=== PATIENT | female | born 1955 | race Caucasian/White ===

== ENCOUNTER → 2019-07-12 | Outpatient (CLI) | payer OTHER ==
--- NOTE | 2019-07-12 10:59 | MM ---
Reason for exam: screening (asymptomatic). Last mammogram was performed 2 years and 11 months ago. History: Patient is postmenopausal. Benign US right core biopsy of the right breast, December 12, 2005. Benign ultrasound-guided core biopsy of the left breast, February 22, 2005. Benign ultrasound-guided core biopsy of the left breast, February 22, 2005. Core biopsy of the left breast. Took hormonal contraceptives for 6 months beginning at age 21. Took estrogen for 6 months beginning at age 54. Physical Findings: A clinical breast exam by your physician is recommended on an annual basis and results should be correlated with mammographic findings. MG Screening Mammo w CAD Bilateral CC and MLO view(s) were taken. Prior study comparison: August 09, 2016, bilateral MG 3d screening mammo w/cad. August 07, 2015, bilateral MG screening mammo w CAD. The breast tissue is heterogeneously dense. This may lower the sensitivity of mammography. Finding: There are typically benign vascular, round calcifications in both breasts. Previous mammotome biopsy in the right breast. There is a chronic nodularity in the left anterior outer aspect. There is no discrete abnormality. ASSESSMENT: Benign, BI-RAD 2 RECOMMENDATION: Routine screening mammogram of both breasts in 1 year.
== END | disposition home or self-care (01) ==
LOC: RADMAMWWP 07:34
PROVIDERS: ATTEND Family Medicine
DX: Z12.31 Encounter for screening mammogram for malignant neoplasm of breast (principal)
CPT/HCPCS: 77067

== ENCOUNTER → 2020-07-14 | Outpatient (CLI) | payer OTHER ==
--- NOTE | 2020-07-18 11:16 | MM ---
Reason for exam: screening (asymptomatic). Last mammogram was performed 1 year ago. History: Patient is postmenopausal. Benign US right core biopsy of the right breast, December 12, 2005. Benign ultrasound-guided core biopsy of the left breast, February 22, 2005. Benign ultrasound-guided core biopsy of the left breast, February 22, 2005. Core biopsy of the left breast. Took hormonal contraceptives for 6 months beginning at age 21. Took estrogen for 6 months beginning at age 54. Physical Findings: A clinical breast exam by your physician is recommended on an annual basis and results should be correlated with mammographic findings. MG Screening Mammo w CAD Bilateral CC and MLO view(s) were taken. Prior study comparison: July 12, 2019, bilateral MG screening mammo w CAD. August 09, 2016, bilateral MG 3d screening mammo w/cad. The breast tissue is heterogeneously dense. This may lower the sensitivity of mammography. Previous mammotome biopsy in the right breast. There is chronic nodularity in the left breast laterally and posteriorly. No significant changes when compared with prior studies. ASSESSMENT: Benign, BI-RAD 2 RECOMMENDATION: Routine screening mammogram of both breasts in 1 year.
== END | disposition home or self-care (01) ==
LOC: RADMAMWWP 15:48
PROVIDERS: ATTEND Family Medicine
DX: Z12.31 Encounter for screening mammogram for malignant neoplasm of breast (principal)
CPT/HCPCS: 77067

== ENCOUNTER → 2022-09-13 | Outpatient (CLI) | payer MEDICARE ==
--- NOTE | 2022-09-13 08:39 | MM ---
Reason for Exam: Screening (asymptomatic). Last mammogram was performed 2 year(s) and 2 month(s) ago. Patient History: Menarche at age 15. First Full-Term at age 24. Hysterectomy at age 31. Postmenopausal. Estrogen for 6 months starting at age 54. Hormonal Contraceptives for 6 months from age 21 until age 21. Core Biopsy on the Left side. 12/12/2005, Benign Core Biopsy on the right side. 02/22/2005, Benign Ultrasound-Guided Core Biopsy on the left side. 02/22/2005, Benign Ultrasound-Guided Core Biopsy on the left side. Risk Values: Anabel 5 year model risk: 2.1%. NCI Lifetime model risk: 7.3%. Prior Study Comparison: 08/09/2016 Bilateral Screening Mammogram, [facility]. 07/12/2019 Bilateral Screening Mammogram, [facility]. 07/14/2020 Bilateral Screening Mammogram, [facility]. Tissue Density: The breast tissue is heterogeneously dense. This may lower the sensitivity of mammography. Findings: Analyzed By CAD. There is no suspicious group of microcalcifications or new suspicious mass in either breast. Overall Assessment: Benign, BI-RAD 2 Management: Screening Mammogram of both breasts in 1 year. A clinical breast exam by your physician is recommended on an annual basis and results should be correlated with mammographic findings. Electronically signed and approved by: Riki Auguste M.D. Radiologis
--- NOTE | 2022-09-13 09:29 | BD ---
EXAMINATION TYPE: Axial Bone Density DATE OF EXAM: 09/13/2022 COMPARISON: NONE CLINICAL HISTORY: 67 years year old Female. ICD-10 CODE: M89.9 Disorder of bone Height: 64.5 IN Weight: 209 LBS FRAX RISK QUESTIONS: Secondary Osteoporosis: 3. Menopause before 45: PARTIAL HYST AGE 31 RISK FACTORS HISTORY OF: Family History of Osteoporosis: YES MOTHER Active: YES Postmenopausal woman: PARTIAL HYST AGE 31 Take estrogen and/or progesterone medications: NOT NOW How lon YEARS MEDICATIONS: Additional Medications: CALCIUM, VIT D, ARTHRITIS MEDS, BLOOD PRESSURE MEDS, CHOLESTEROL MEDS, URINAR Y FREQUENCY MEDS, ALLERGY MEDS EXAM MEASUREMENTS: Bone mineral densitometry was performed using the Hyphen 8 System. Bone mineral density as measured about the Lumbar spine is: ----- L1-L4(G/cm2): 1.413 T Score Values are as follows: ----- L1: 1.6 ----- L2: 1.8 ----- L3: 2.3 ----- L4: 1.9 ----- L1-L4: 1.9 Bone mineral density BASELINE Bone mineral density about the R hip (g/cm2): 1.062 Bone mineral density about the L hip (g/cm2): 1.059 T Score values are as follows: -----R Neck: 0.2 -----L Neck: 0.1 -----R Total: 0.9 -----L Total: 0.8 Bone mineral density BASELINE FRAX%s: The graph provided illustrates a 2.7 chance for a major osteoporotic fx and a 0.1 chance for the hips probability for fx in 10 years time. IMPRESSION: Normal (Values between +1 and -1 indicate normal bone mass). Consider repeating this study in 5 year s or sooner if there is some new clinical indication. NOTE: T-SCORE=SD OF THE YOUNG ADULT MEAN.
== END | disposition home or self-care (01) ==
LOC: RADMAMWWP 06:42
PROVIDERS: ATTEND Family Medicine
DX: Z12.31 Encounter for screening mammogram for malignant neoplasm of breast (principal); M89.9 Disorder of bone, unspecified; Z78.0 Asymptomatic menopausal state
CPT/HCPCS: 77063; 77067; 77080

== ENCOUNTER 2022-10-15 08:32 | Day surgery (SDC) | payer MEDICARE ==
[2022-10-10 15:15] VITALS: BMI 34.9
[~2022-10-15 08:32] MED LIST: LACTATED RINGERS 1,000 ML IV SCH; LIDOCAINE 1% (10MG/ML) FOR IV START INTRADERMA PRN; ONDANSETRON 4 MG/2 ML VIAL IVP PRN
[2022-10-15 09:45] VITALS: TEMP 98.2
[2022-10-15] MEDS ORDERED: PROPOFOL 10 MG/ML 20 ML VIAL IV ONE (10:14)
--- NOTE | 2022-10-15 10:37 | P.PCN ---
Date of Procedure: 10/15/22 Procedure(s) Performed: BRIEF HISTORY: Patient is a 67-year-old pleasant white female scheduled for an elective colonoscopy as a part of evaluation of prior history of colon polyps. Last colonoscopy was 5 years ago. PROCEDURE PERFORMED: Colonoscopy with biopsy. PREOPERATIVE DIAGNOSIS: History of colon polyps. IV sedation per Anesthesia. PROCEDURE: After informed consent was obtained, the patient, was brought into the endoscopy unit. IV sedation was administered by Anesthesia under continuous monitoring. Digital rectal examination was normal. Initially the Olympus CF-160 flexible video colonoscope was then inserted in the rectum, gradually advanced into the cecum without any difficulty. Careful examination was performed as the scope was gradually being withdrawn. Ileocecal valve and the appendiceal orifice were visualized and appeared normal. Prep was excellent. Mucosa of the cecum, ascending colon, transverse colon, descending colon, appeared normal. The sigmoid colon there was a 5 mm polyp that was removed by cold biopsy. Scattered sigmoid diverticulosis seen. Rest of the sigmoid colon, and rectum appeared normal. Retroflexion was performed in the rectum and no lesions were seen. The patient tolerated the procedure well. IMPRESSION: 5 mm sigmoid: Polyp status post cold biopsy Scattered sigmoid diverticulosis RECOMMENDATIONS: Findings of this examination were discussed with the patient as well as a family.. She was advised to follow with the biopsy results. If the biopsy reveals adenoma she can have a repeat colonoscopy in 5 years.
[2022-10-15 10:56] VITALS: BP 141/69; PULSE 63; RESP 16
== END 2022-10-15 11:29 | disposition home or self-care (01) ==
LOC: ORWHC2ENDO 08:32
PROVIDERS: ATTEND Internal Medicine Gastroenterology
DX: Z12.11 Encounter for screening for malignant neoplasm of colon (principal); K63.5 Polyp of colon; K57.30 Diverticulosis of large intestine without perforation or abscess without bleeding; Z91.041 Radiographic dye allergy status; Z91.048 Other nonmedicinal substance allergy status; I10 Essential (primary) hypertension; E78.5 Hyperlipidemia, unspecified; Z90.79 Acquired absence of other genital organ(s); Z79.01 Long term (current) use of anticoagulants; Z79.899 Other long term (current) drug therapy; Z79.52 Long term (current) use of systemic steroids; Z79.1 Long term (current) use of non-steroidal anti-inflammatories (NSAID); Z79.811 Long term (current) use of aromatase inhibitors
CPT/HCPCS: 45380; J2704; 88305

== ENCOUNTER → 2023-11-03 | Outpatient (CLI) | payer MEDICARE ==
--- NOTE | 2023-11-03 17:37 | MM ---
Reason for Exam: Screening (asymptomatic). Last mammogram was performed 1 year(s) and 2 month(s) ago. Patient History: Menarche at age 15. First Full-Term at age 24. Hysterectomy at age 31. Postmenopausal. Estrogen for 6 months starting at age 54. Hormonal Contraceptives for 6 months from age 21 until age 21. Core Biopsy on the Left side. 12/12/2005, Benign Core Biopsy on the right side. 02/22/2005, Benign Ultrasound-Guided Core Biopsy on the left side. 02/22/2005, Benign Ultrasound-Guided Core Biopsy on the left side. Risk Values: Anabel 5 year model risk: 2.1%. NCI Lifetime model risk: 7.1%. Prior Study Comparison: 07/12/2019 Bilateral Screening Mammogram, [facility]. 07/14/2020 Bilateral Screening Mammogram, [facility]. 09/13/2022 Bilateral MG 3D screening mammo w/cad, [facility]. Tissue Density: The breast tissue is heterogeneously dense. This may lower the sensitivity of mammography. Findings: Analyzed By CAD. Benign vascular calcifications on the right. Microclip right breast from prior biopsy. There is no suspicious group of microcalcifications or new suspicious mass in either breast. Overall Assessment: Benign, BI-RAD 2 Management: Screening Mammogram of both breasts in 1 year. . Patient should continue monthly self-breast exams. A clinical breast exam by your physician is recommended on an annual basis. This exam should not preclude additional follow-up of suspicious palpable abnormalities. Note on Anabel scores and lifetime risk: 1. A Anabel score greater than 3% is considered moderate risk. If this is the case, consider specialist referral to assess eligibility for a risk reducing agent. 2. If overall lifetime risk for the development of breast cancer is 20% or higher, the patient may qualify for future screening with alternating mammogram and breast MRI. Electronically signed and approved by: Juanito Rubi M.D. Radiologist
== END | disposition home or self-care (01) ==
LOC: RADMAMWWP 09:25
PROVIDERS: ATTEND Family Medicine
DX: Z12.31 Encounter for screening mammogram for malignant neoplasm of breast (principal); Z78.0 Asymptomatic menopausal state
CPT/HCPCS: 77063; 77067

== ENCOUNTER 2024-02-01 18:32 | Emergency (ER) | payer MEDICARE ==
--- NOTE | 2024-02-01 19:05 | ED ---
Fall HPI - General Chief Complaint: Fall Stated Complaint: Fall, head injury Time Seen by Provider: 02/01/24 18:48 Source: patient Mode of arrival: ambulatory - History of Present Illness Initial Comments: 68-year-old female presenting for evaluation post fall. Patient states that earlier in the day she was not feeling well, she was quite fatigued. She was at a restaurant sitting at a barstool when she told her "I really do not feel well" states that she was nauseous and when she tried to get up out of the chair her foot got caught in the crossbar causing her to fall backwards and hit her head. No loss of consciousness or blood thinners. She denies chest pain, difficulty breathing, abdominal pain, vomiting, vision or hearing changes, numbness, tingling, weakness. She does admit to headache at the point of impact. - Related Data Home Medications Medication Instructions Recorded Confirmed Cetirizine HCl [Zyrtec] 10 mg PO DAILY 09/28/15 10/15/22 Fluticasone Nasal [place] [Flonase 1 spray EA NOSTRIL DAILY 09/28/15 10/15/22 Nasal [place]] Meloxicam 15 mg PO DAILY 09/28/15 10/15/22 Mirabegron [Myrbetriq] 50 mg PO DAILY 09/28/15 10/15/22 Omeprazole [PriLOSEC] 20 mg PO AC-BRKFST 09/28/15 10/15/22 Simvastatin [Zocor] 40 mg PO HS 09/28/15 10/15/22 Losartan/Hydrochlorothiazide 1 each PO DAILY 10/15/22 10/15/22 [Hyzaar 100-12.5 Tablet] amLODIPine [Norvasc] 2.5 mg PO DAILY 10/15/22 10/15/22 Previous Rx's Medication Instructions Recorded Cephalexin [Keflex] 500 mg PO Q12HR 7 Days #14 cap 02/01/24 Cephalexin [Keflex] 500 mg PO Q12HR 7 Days #14 cap 02/01/24 Allergies Allergy/AdvReac Type Severity Reaction Status Date / Time Iodinated Contrast Media Allergy Itching Verified 10/15/22 09:28 [Iodinated Contrast Media - IV Dye] Review of Systems ROS Statement: Those systems with pertinent positive or pertinent negative responses have been documented in the HPI. ROS Other: All systems not noted in ROS Statement are negative. Past Medical History Past Medical History: GERD/Reflux Additional Past Medical History / Comment(s): urinary frequency, arthritis History of Any Multi-Drug Resistant Organisms: None Reported Past Surgical History: Hysterectomy Past Psychological History: No Psychological Hx Reported Smoking Status: Never smoker Past Alcohol Use History: Occasional Past Drug Use History: Marijuana General Exam Limitations: no limitations General appearance: alert, in no apparent distress Head exam: Present: atraumatic, normocephalic Eye exam: Present: normal appearance, PERRL, EOMI Pupils: Present: normal accommodation Neck exam: Present: normal inspection Respiratory exam: Present: normal lung sounds bilaterally. Absent: respiratory distress, wheezes, rales, rhonchi, stridor Cardiovascular Exam: Present: regular rate, normal rhythm, normal heart sounds. Absent: systolic murmur, diastolic murmur, rubs, gallop, clicks Extremities exam: Present: normal inspection, full ROM Neurological exam: Present: alert, oriented X3 Expanded Patient oriented to: Present: person, place, time Speech: Present: fluid speech Cranial nerves: EOM's Intact: Normal Cerebellar function: Finger to Nose: Normal, Heel to [place]: Normal Motor strength exam: RUE: 5, LUE: 5, RLE: 5, LLE: 5 Eye Response: (4) open spontaneously Motor Response: (6) obeys commands Verbal Response: (5) oriented [place] Total: 15 Psychiatric exam: Present: normal affect, normal mood Skin exam: Present: warm, dry Course Vital Signs 02/01/24 02/01/24 18:34 20:30 Temperature 97.4 F L Pulse Rate 64 66 Respiratory 17 18 Rate Blood Pressure 148/71 138/74 O2 Sat by Pulse 98 97 Oximetry Medical Decision Making - Medical Decision Making Was pt. sent in by a medical professional or institution (, PA, LAW FIRM ADMINISTRATOR, urgent care, hospital, or care home...) When possible be specific @ -No Did you speak to anyone other than the patient for history (EMS, parent, family, police, friend...)? What history was obtained from this source @ -No Did you review nursing and triage notes (agree or disagree)? Why? @ -I reviewed and agree with nursing and triage notes Were old charts reviewed (outside hosp., previous admission, EMS record, old EKG, old radiological studies, urgent care reports/EKG's, care home records)? Report findings @ -No old charts were reviewed Differential Diagnosis (chest pain, altered mental status, abdominal pain women, abdominal pain men, vaginal bleeding, weakness, fever, dyspnea, syncope, headache, dizziness, GI bleed, back pain, seizure, CVA, palpatations, mental health, musculoskeletal)? @ -MDM Differential Weakness: Hypoglycemia, shock, sepsis, hyponatremia, anemia, infection, ND, ETOH, adverse medicine reaction, overdose, stroke. ... This is not meant to be an all- inclusive list EKG interpreted by me (3pts min.). @ -EKG shows sinus rhythm ventricular rate 64. MA interval 156. QRS 96. QT 396. QTc 406. X-rays interpreted by me (1pt min.). @ -None done CT interpreted by me (1pt min.). @ -CT shows no acute intracranial CT abnormality. Small soft tissue contusion posteriorly on the left over the occiput. No calvarial fracture. No evidence of acute cervical spine fracture or traumatic malalignment. Mild to moderate cervical spondylosis U/S interpreted by me (1pt. min.). @ -None done What testing was considered but not performed or refused? (CT, X-rays, U/S, labs)? Why? @ -None What meds were considered but not given or refused? Why? @ -None Did you discuss the management of the patient with other professionals (pro fessionals i.e. , PA, LAW FIRM ADMINISTRATOR, lab, RT, psych nurse, social service manager, enterprise account executive, teacher, licensed mortgage loan officer, welfare case worker)? Give summary @ -No Was smoking cessation discussed for >3mins.? @ -No Was critical care preformed (if so, how long)? @ -No Were there social determinants of health that impacted care today? How? (Homelessness, low income, unemployed, alcoholism, drug addiction, transportation, low edu. Level, literacy, decrease access to med. care, intermediate, rehab)? @ -No Was there de-escalation of care discussed even if they declined (Discuss DNR or withdrawal of care, Hospice)? DNR status @ -No What co-morbidities impacted this encounter? (DM, HTN, Smoking, COPD, CAD, Cancer, CVA, ARF, Chemo, Hep., AIDS, mental health diagnosis, sleep apnea, morbid obesity)? @ -None Was patient admitted / discharged? Hospital course, mention meds given and route, prescriptions, significant lab abnormalities, going to OR and other pertinent info. @ -68-year-old female presenting for evaluation post fall. Today she has been feeling fatigued, weak, and nauseous. History and physical exam are conducted. WBC 16.8. Sodium 134 and BUN 32, patient is receiving IV fluids. Negative troponin and EKG shows no acute ischemic changes. CT of the brain and cervical spine shows no acute intracranial process or cervical spine fracture. Urine is positive for UTI. Patient is given 1 g of Rocephin here in the ER and sent prescription for Keflex. Urine is sent for culture. Patient is educated on today's findings and treatment plan. Discharged home. Follow-up with PCP. Report back to ER with any new or worsening symptoms. Discussed return parameters and answered all questions. Patient conveyed verbal understanding and agreed to the plan. I discussed this case in detail with my attending Dr. Rodríguez Undiagnosed new problem with uncertain prognosis? @ -No Drug Therapy requiring intensive monitoring for toxicity (Heparin, Nitro, Insulin, Cardizem)? @ -No Were any procedures done? @ -No Diagnosis/symptom? @ -UTI Acute, or Chronic, or Acute on Chronic? @ -Acute Uncomplicated (without systemic symptoms) or Complicated (systemic symptoms)? @ -Complicated Side effects of treatment? @ -No Exacerbation, Progression, or Severe Exacerbation? @ -No Poses a threat to life or bodily function? How? (Chest pain, USA, ND, pneumonia, PE, COPD, DKA, ARF, appy, cholecystitis, CVA, Diverticulitis, Homicidal, Suicidal, threat to staff... and all critical care pts) @ -Low likelihood - Lab Data Result diagrams: 02/01/24 19:50 02/01/24 19:50 Lab Results 02/01/24 02/01/24 02/01/24 Range/Units 19:50 19:50 19:50 WBC 16.8 H (3.8-10.6) k/uL RBC 4.66 (3.80-5.40) m/uL Hgb 13.8 (11.4-16.0) gm/dL Hct 42.8 (34.0-46.0) % MCV 92.0 (80.0-100.0) fL MCH 29.6 (25.0-35.0) pg MCHC 32.2 (31.0-37.0) g/dL RDW 13.0 (11.5-15.5) % Plt Count 385 (150-450) k/uL MPV 7.6 Neutrophils % 84 % Lymphocytes % 9 % Monocytes % 6 % Eosinophils % 1 % Basophils % 0 % Neutrophils # 14.1 H (1.3-7.7) k/uL Lymphocytes # 1.4 (1.0-4.8) k/uL Monocytes # 1.0 (0-1.0) k/uL Eosinophils # 0.1 (0-0.7) k/uL Basophils # 0.0 (0-0.2) k/uL PT 9.7 L (10.0-12.5) sec INR 0.9 (<1.2) APTT 21.2 L (22.0-30.0) sec Sodium 134 L (137-145) mmol/L Potassium 4.2 (3.5-5.1) mmol/L Chloride 101 (98-107) mmol/L Carbon Dioxide 26 (22-30) mmol/L Anion Gap 7 mmol/L BUN 32 H (7-17) mg/dL Creatinine 0.88 (0.52-1.04) mg/dL Est GFR (CKD-EPI)AfAm 79 (>60 ml/min/1.73 sqM) Est GFR (CKD-EPI)NonAf 69 (>60 ml/min/1.73 sqM) Glucose 110 H (74-99) mg/dL Plasma Lactic Acid [place] (0.7-2.0) mmol/L Calcium 9.4 (8.4-10.2) mg/dL Magnesium 2.1 (1.6-2.3) mg/dL Total Bilirubin 0.5 (0.2-1.3) mg/dL AST 21 (14-36) U/L ALT 24 (4-34) U/L Alkaline Phosphatase 84 (38-126) U/L Troponin I (0.000-0.034) ng/mL Total Protein 6.5 (6.3-8.2) g/dL Albumin 4.1 (3.5-5.0) g/dL Urine Color Urine Appearance (Clear) Urine pH (5.0-8.0) Ur Specific [place] (1.001-1.035) Urine Protein (Negative) Urine Glucose (UA) (Negative) Urine Ketones (Negative) Urine Blood (Negative) Urine Nitrite (Negative) Urine Bilirubin (Negative) Urine Urobilinogen (<2.0) mg/dL Ur Leukocyte Esterase (Negative) Urine RBC (0-5) /hpf Urine WBC (0-5) /hpf Urine WBC Clumps (None) /hpf Ur Squamous Epith Cells (0-4) /hpf Amorphous Sediment (None) /hpf Urine Bacteria (None) /hpf Hyaline Casts (0-2) /lpf Urine Mucus (None) /hpf 02/01/24 02/01/24 02/01/24 Range/Units 19:50 19:50 20:15 WBC (3.8-10.6) k/uL RBC (3.80-5.40) m/uL Hgb (11.4-16.0) gm/dL Hct (34.0-46.0) % MCV (80.0-100.0) fL MCH (25.0-35.0) pg MCHC (31.0-37.0) g/dL RDW (11.5-15.5) % Plt Count (150-450) k/uL MPV Neutrophils % % Lymphocytes % % Monocytes % % Eosinophils % % Basophils % % Neutrophils # (1.3-7.7) k/uL Lymphocytes # (1.0-4.8) k/uL Monocytes # (0-1.0) k/uL Eosinophils # (0-0.7) k/uL Basophils # (0-0.2) k/uL PT (10.0-12.5) sec INR (<1.2) APTT (22.0-30.0) sec Sodium (137-145) mmol/L Potassium (3.5-5.1) mmol/L Chloride (98-107) mmol/L Carbon Dioxide (22-30) mmol/L Anion Gap mmol/L BUN (7-17) mg/dL Creatinine (0.52-1.04) mg/dL Est GFR (CKD-EPI)AfAm (>60 ml/min/1.73 sqM) Est GFR (CKD-EPI)NonAf (>60 ml/min/1.73 sqM) Glucose (74-99) mg/dL Plasma Lactic Acid [place] 1.2 (0.7-2.0) mmol/L Calcium (8.4-10.2) mg/dL Magnesium (1.6-2.3) mg/dL Total Bilirubin (0.2-1.3) mg/dL AST (14-36) U/L ALT (4-34) U/L Alkaline Phosphatase (38-126) U/L Troponin I <0.012 (0.000-0.034) ng/mL Total Protein (6.3-8.2) g/dL Albumin (3.5-5.0) g/dL Urine Color Light Yellow Urine Appearance Cloudy H (Clear) Urine pH 5.5 (5.0-8.0) Ur Specific [place] 1.020 (1.001-1.035) Urine Protein Negative (Negative) Urine Glucose (UA) Negative (Negative) Urine Ketones Negative (Negative) Urine Blood Trace H (Negative) Urine Nitrite Negative (Negative) Urine Bilirubin Negative (Negative) Urine Urobilinogen <2.0 (<2.0) mg/dL Ur Leukocyte Esterase Moderate H (Negative) Urine RBC 10 H (0-5) /hpf Urine WBC 64 H (0-5) /hpf Urine WBC Clumps Rare H (None) /hpf Ur Squamous Epith Cells 6 H (0-4) /hpf Amorphous Sediment Rare H (None) /hpf Urine Bacteria Many H (None) /hpf Hyaline Casts 16 H (0-2) /lpf Urine Mucus Few H (None) /hpf Disposition Clinical Impression: UTI (urinary tract infection), Head injury Disposition: HOME SELF-CARE Condition: Good Instructions (If sedation given, give patient instructions): Urinary Tract Infection in Women (ED), Head Injury (ED) Additional Instructions: Follow-up with PCP. Report back to ER with any new or worsening symptoms Prescriptions: Cephalexin [Keflex] 500 mg PO Q12HR 7 Days #14 cap Cephalexin [Keflex] 500 mg PO Q12HR 7 Days #14 cap Is patient prescribed a controlled substance at d/c from ED?: No Referrals: Ridge Haddad MD [Primary Care Provider] - 1-2 days Time of Disposition: 21:25
[2024-02-01 19:13] VITALS: TEMP 97.4
[2024-02-01 20:10] LABS: Basophils % (A) 0 %; Eosinophils # (A) 0.1 k/uL (0-0.7); Eosinophils % (A) 1 %; HCT 42.8 % (34.0-46.0); HGB 13.8 gm/dL (11.4-16.0); Lymphocytes # (A) 1.4 k/uL (1.0-4.8); Lymphocytes % (A) 9 %; MCH 29.6 pg (25.0-35.0); MCHC 32.2 g/dL (31.0-37.0); Mean Platelet Volume 7.6; Monocytes % (A) 6 %; Neutrophils # (A) 14.1 k/uL (1.3-7.7); Neutrophils % (A) 84 %; Platelet Count 385 k/uL (150-450); RBC 4.66 m/uL (3.80-5.40); WBC 16.8 k/uL (3.8-10.6)
[2024-02-01 20:22] LABS: ALT 24 U/L (4-34); AST 21 U/L (14-36); African American GFR (CKD) 79 (>60 ml/min/1.73 sqM); Albumin 4.1 g/dL (3.5-5.0); Alkaline Phosphatase 84 U/L (38-126); Anion Gap 7 mmol/L; Blood Urea Nitrogen 32 mg/dL (7-17); Calcium 9.4 mg/dL (8.4-10.2); Carbon Dioxide 26 mmol/L (22-30); Chloride 101 mmol/L (98-107); Glucose 110 mg/dL (74-99); Magnesium 2.1 mg/dL (1.6-2.3); Non-African American GFR(CKD) 69 (>60 ml/min/1.73 sqM); Potassium 4.2 mmol/L (3.5-5.1); Sodium 134 mmol/L (137-145); Total Bilirubin 0.5 mg/dL (0.2-1.3); Total Protein 6.5 g/dL (6.3-8.2)
[2024-02-01 20:30] LABS: INR 0.9 (<1.2); Prothrombin Time 9.7 sec (10.0-12.5)
[2024-02-01 20:41] LABS: Amorphous Sediment,Urine Rare /hpf; Appearance,Urine Cloudy (Clear); Bacteria,Urine Many /hpf; Bilirubin,Urine Negative (Negative); Blood,Urine Trace (Negative); Color,Urine Light Yellow; Glucose,Urine (UA) Negative (Negative); Hyaline Casts,Urine 16 /lpf (0-2); Ketones,Urine Negative (Negative); Leukocyte Esterase,Urine Moderate (Negative); Mucus,Urine Few /hpf; Nitrite,Urine Negative (Negative); PH, Urine 5.5 (5.0-8.0); Protein,Urine Negative (Negative); RBC,Urine 10 /hpf (0-5); Squamous Epithelial Cell,Urine 6 /hpf (0-4); Urobilinogen,Urine <2.0 mg/dL (<2.0); WBC,Urine 64 /hpf (0-5)
[2024-02-01 20:51] LABS: Partial Thromboplastin Time 21.2 sec (22.0-30.0)
--- NOTE | 2024-02-01 21:01 | CT ---
EXAMINATION TYPE: CT brain cspine wo con CT DLP: 1419 mGycm, Automated exposure control for dose reduction was used. DATE OF EXAM: 02/01/2024 7:20 PM COMPARISON: None. CLINICAL INDICATION:Female, 68 years old with history of fall, head injury; fall, posterior head inju ry TECHNIQUE: Brain: Multiple axial CT images of the brain were obtained without IV contrast. Cspine: Axial CT images from the skull base to the inferior aspect of T2 we obtained without intraven ous contrast. Coronal and sagittal reformatted images were also reviewed. FINDINGS: Brain: Extra-axial spaces: No abnormal extra-axial fluid collections. Ventricular system: Appear mildly dilated in proportion to the degree of cerebral atrophy. Cerebral parenchyma: No increased attenuation to suggest acute intraparenchymal hemorrhage. The gra y-white matter interface appears maintained. Mild atrophy, primarily bifrontal. White matter unrema rkable by CT. Cerebellum: No acute abnormality. Mass effect: No evidence of mass effect or midline shift. Intracranial vasculature: Atherosclerotic calcifications of the larger arteries near the skull base. Soft tissues: Small soft tissue contusion suggested over the lower left occiput. Unremarkable orbits. Calvarium/osseous structures: No evidence of calvarial fracture. Paranasal sinuses and mastoid air cells: Small lobular mucosal thickening in the maxillary sinuses. N o significant fluid. Mastoid air cells are clear. MRI is more sensitive for detecting acute processes such as infarct, and may be considered if clinica lly warranted. Cervical spine: Fracture: None seen. Osseous structures, spinal canal/neural foramina: Craniocervical junction is intact. Mild to moderate multilevel cervical degenerative disk disease and facet arthrosis. There are various degrees of mild to moderate canal and neural foraminal stenosis. No critical bony canal or foraminal stenosis. Vertebral alignment: No traumatic malalignment. Straightening mild reversal of the normal cervical lo rdosis, can be seen with degenerative changes, pain, positioning, muscular spasm. Neck soft tissues: No acute finding. Calcifications noted involving the cervical carotid arteries mo stly in the bifurcation regions, and along the aortic arch. Other: Lung apices show mild scarring. No acute consolidation or pneumothorax. IMPRESSION: CT head: 1. No acute intracranial CT abnormality. 2. Small soft tissue contusion posteriorly on the left over the occiput. No calvarial fracture. CT cervical spine: 1. No evidence of acute cervical spine fracture or traumatic malalignment. 2. Mild/moderate cervical spondylosis.
[2024-02-01 21:04] VITALS: BP 138/74; PULSE 66; RESP 18
[2024-02-01] MEDS: cefTRIAXone IN SWFI 1,000 MG/10 ML SYRINGE IVP STA (21:46)
== END 2024-02-01 21:53 | disposition home or self-care (01) ==
LOC: EC 18:32
DX: S00.03XA Contusion of scalp, initial encounter (principal); N39.0 Urinary tract infection, site not specified; Z91.041 Radiographic dye allergy status; W07.XXXA Fall from chair, initial encounter; Y92.511 Restaurant or cafe as the place of occurrence of the external cause
CPT/HCPCS: 36415; 93005; 80053; 83605; 83735; 84484; 85025; 85610; 85730; 81001; 87086; 72125; 70450; 99284; 96374; J0696

== ENCOUNTER → 2025-01-20 | Outpatient (CLI) | payer MEDICARE ==
--- NOTE | 2025-01-20 10:59 | MM ---
Reason for Exam: Screening (asymptomatic). Last mammogram was performed 1 year(s) and 2 month(s) ago. Patient History: Menarche at age 15. First Full-Term at age 24. Hysterectomy at age 31. Postmenopausal. Estrogen for 6 months starting at age 54. Hormonal Contraceptives for 6 months from age 21 until age 21. Core Biopsy on the Left side. 12/12/2005, Benign Core Biopsy on the right side. 02/22/2005, Benign Ultrasound-Guided Core Biopsy on the left side. 02/22/2005, Benign Ultrasound-Guided Core Biopsy on the left side. Risk Values: Anabel 5 year model risk: 2.1%. NCI Lifetime model risk: 6.8%. Prior Study Comparison: 07/14/2020 Bilateral Screening Mammogram, [facility]. 09/13/2022 Bilateral MG 3D screening mammo w/cad, [facility]. 11/03/2023 Bilateral MG 3D screening mammo w/cad, [facility]. Tissue Density: The breasts are heterogeneously dense, which may obscure small masses. Findings: Analyzed By CAD. There is no suspicious group of microcalcifications or new suspicious mass in either breast. Benign appearing calcifications. Stable surgical clip right breast. Overall Assessment: Benign, BI-RAD 2 Management: Screening Mammogram of both breasts in 1 year. . Patient should continue monthly self-breast exams. A clinical breast exam by your physician is recommended on an annual basis. This exam should not preclude additional follow-up of suspicious palpable abnormalities. Note on Anabel scores and lifetime risk: 1. A Anabel score greater than 3% is considered moderate risk. If this is the case, consider specialist referral to assess eligibility for a risk reducing agent. 2. If overall lifetime risk for the development of breast cancer is 20% or higher, the patient may qualify for future screening with alternating mammogram and breast MRI. [facility], , 01/20/2025 10:56 AM. Electronically signed and approved by: Henry Jimenez M.D. [facility]
== END | disposition home or self-care (01) ==
LOC: RADMAMWWP 10:05
PROVIDERS: ATTEND Family Medicine
DX: Z12.31 Encounter for screening mammogram for malignant neoplasm of breast (principal); R92.333 Mammographic heterogeneous density, bilateral breasts; Z78.0 Asymptomatic menopausal state; Z92.0 Personal history of contraception
CPT/HCPCS: 77063; 77067